=== PATIENT | female | born 1965 | race Caucasian/White ===

== ENCOUNTER 2017-12-22 08:08 | Emergency (ER) | payer BC ==
[2017-12-22 08:16] VITALS: BP 141/92
--- NOTE | 2017-12-22 08:23 | EDM.PDOC ---
ED HPI GENERAL MEDICAL PROBLEM - General Chief Complaint: Headache Stated Complaint: MIGRAINE Time Seen by Provider: 12/22/17 08:22 Source of Information: Reports: Patient History Limitations: Reports: No Limitations - History of Present Illness INITIAL COMMENTS - FREE TEXT/NARRATIVE: 52-year-old female attends the ED due to generalized severe headache. Associated nausea. History is complicated by the fact that she had surgery on her lumbar spine November 01.This was a microdiscectomy done by Dr Alston in [facility], [place]. She appears to develop recurrent seromas and dural leak but the source of this leak is not been able to be identified. She had a lumbar puncture gain done on Saturday last week looking for dural leak and had a myelogram performed at that time. Apparently no source of leak identified. She' s had 3 surgeries since November 01 in an effort to close suspect dural leak. He presents the ED with a severe pounding headache. She went to work for 2 part days last week for the first time in 6 weeks as she's been disabled by severe headaches. Headache is worse with bending her head or traction component to her headaches. Worse if she sneezes or coughs. Different than what she experienced post lumbar spine headache. No visual changes. She is sensitive to the sun. Onset: Other (Has had a headache for over 6 weeks) Onset Date: 11/02/17 Duration: Getting Worse, Waxing/Waning Location: Reports: Head (Headache) Quality: Reports: Ache, Throbbing, Other (Pounding pressure) Severity: Severe (8 out of 10) Improves with: Reports: Rest Worsens with: Reports: Other (Worse with standing coughing sneezing.) Context: Reports: Other (Headache occurred after lumbar spine surgery with suspect dural leak and formation of a seroma.). Denies: Activity, Exercise, Lifting, Sick Contact, Trauma Associated Symptoms: Reports: Headaches, Loss of Appetite, Malaise, Nausea/ Vomiting. 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, Other (see below) (Percocet and Flexeril when necessary) Headache Pain Score (Numeric/FACES): 10 - Related Data Allergies Allergy/AdvReac Type Severity Reaction Status Date / Time No Known Allergies Allergy Verified 12/22/17 08:16 Home Meds: Home Meds Calcium Carbonate/Vitamin D3 [Calcium 600 + Vit D 200] 2 tab PO DAILY 01/31/16 [ History] Ipratropium [place] 2 spray NASBOTH BID 01/31/16 [History] Multivitamin [Multivitamins] 1 cap PO DAILY 01/31/16 [History] SUMAtriptan Succinate [Imitrex] 100 mg PO ASDIRECTED PRN 01/31/16 [History] Zolpidem Tartrate [Ambien Cr] 6.25 mg PO BEDTIME PRN 01/31/16 [History] busPIRone HCl [Buspirone HCl] 15 mg PO BID 01/31/16 [History] Acetaminophen/oxyCODONE [Percocet 325-5 MG] 1 - 2 tab PO Q6H PRN #40 tablet [Rx] Cyclobenzaprine [Flexeril] 10 mg PO TID PRN #40 tablet 02/02/16 [Rx] Estradiol [Climara] 0.05 mg TOP TUSA 12/22/17 [History] Progesterone,Micronized [Progesterone] 100 mg PO BEDTIME 12/22/17 [History] Sertraline [Zoloft] 50 mg PO BEDTIME 12/22/17 [History] Past Medical History HEENT History: Reports: Allergic Rhinitis, Sinusitis Other HEENT History: migraines Cardiovascular History: Reports: Other (See Below) Other Cardiovascular History: RBBB Gastrointestinal History: Reports: GERD Other OB/BYN History: hysterectomy Musculoskeletal History: Reports: Other (See Below) Other Musculoskeletal History: DDD Psychiatric History: Reports: Anxiety, Depression, Other (See Below) Other Psychiatric History: insomnia Dermatologic History: Reports: Other (See Below) Other Dermatologic History: keratosis - Past Surgical History GI Surgical History: Reports: Appendectomy, Cholecystectomy Female Surgical History: Reports: Hysterectomy Social & Family History - Tobacco Use Smoking Status *Q: Never Smoker - Recreational Drug Use Recreational Drug Use: No - Living Situation & Occupation Living situation: Reports: Occupation: Employed ED ROS GENERAL - Review of Systems Review Of Systems: See Below Constitutional: Reports: Weakness, Fatigue, Decreased Appetite, Weight Loss. Denies: Fever, Chills, Malaise HEENT: Denies: Vertigo Respiratory: Reports: No Symptoms Cardiovascular: Reports: No Symptoms Endocrine: Reports: No Symptoms GI/Abdominal: Reports: Nausea (Intermittent nausea associated with the severity of the headache) Musculoskeletal: Reports: Other (Next stiffness today.) Skin: Reports: No Symptoms Neurological: Reports: Dizziness, Headache, Difficulty Walking, Weakness. Denies: Numbness, Paresthesia, Pre-Existing Deficit, Seizure, Syncope, Tingling , Tremors, Trouble Speaking, Change in Speech Psychiatric: Reports: No Symptoms (Due to the severity of headache) Hematologic/Lymphatic: Reports: No Symptoms Immunologic: Reports: No Symptoms - Physical Exam Exam: See Below Exam Limited By: No Limitations General Appearance: Alert, WD/WN, Mild Distress Eye Exam: Bilateral Eye: Normal Fundi, Papilledema (No papilledema bilaterally.) , PERRL Throat/Mouth: Normal Inspection, Normal Lips, Normal Oropharynx Head Exam: Atraumatic, Normocephalic Neck: Normal Inspection, Supple, Non-Tender, Full Range of Motion. No: Lymphadenopathy (L), Lymphadenopathy (R) Respiratory/Chest: No Respiratory Distress, Lungs Clear, Normal Breath Sounds Cardiovascular: Normal Peripheral Pulses, Regular Rate, Rhythm, No Edema Back Exam: Other (She has a well-healed midline lumbar spine scar with no formation of seroma at this time.). No: CVA Tenderness (L), CVA Tenderness (R) , Decreased Range of Motion Extremities: Normal Inspection, Normal Range of Motion, Non-Tender, No Pedal Edema Psychiatric: Normal Affect Skin Exam: Warm, Dry, Intact, Normal Color, No Rash Course - Vital Signs Last Recorded V/S: Last Vital Signs Temp 37.1 C 12/22/17 08:14 Pulse 67 12/22/17 08:14 Resp 16 12/22/17 08:14 BP 141/92 H 12/22/17 08:14 Pulse Ox 98 12/22/17 08:14 - Orders/Labs/Meds Orders: Active Orders 24 hr Category Date Time Status Dextrose 5%-Lactated Ringers 1,000 ml Med 12/22/17 08:30 Active IV ASDIRECTED Ketorolac [Toradol] Med 12/22/17 08:45 Active 30 mg IVPUSH ONETIME Medication Orders Dextrose/Lactated Ringer's (Dextrose 5%-Lactated Ringers) 1,000 mls @ 999 mls/ hr IV ASDIRECTED FELICIANO Last Admin: 12/22/17 08:37 Dose: 999 mls/hr Ketorolac Tromethamine (Toradol) 30 mg IVPUSH ONETIME FELICIANO Last Admin: 12/22/17 08:37 Dose: 30 mg Meds: Medications Generic Name Dose Route Start Last Admin Trade Name Freq PRN Reason Stop Dose Admin Dextrose/Lactated Ringer's 1,000 mls @ 999 mls/hr 12/22/17 08:30 12/22/17 08: 37 Dextrose 5%-Lactated Ringers IV 999 mls/hr ASDIRECTED FELICIANO Administration Ketorolac Tromethamine 30 mg 12/22/17 08:45 12/22/17 08:37 Toradol IVPUSH 30 mg ONETIME FELICIANO Administration Discontinued Medications Generic Name Dose Route Start Last Admin Trade Name Freq PRN Reason Stop Dose Admin Hydromorphone HCl 0.5 mg 12/22/17 08:31 12/22/17 08:37 Dilaudid IVPUSH 12/22/17 08:32 0.5 mg ONETIME ONE Administration Hydromorphone HCl 0.5 mg 12/22/17 09:59 12/22/17 10:05 Dilaudid IVPUSH 12/22/17 10:00 0.5 mg ONETIME ONE Administration Metoclopramide HCl 7.5 mg 12/22/17 08:31 12/22/17 08:37 Reglan IVPUSH 12/22/17 08:32 7.5 mg ONETIME ONE Administration - Radiology Interpretation Free Text/Narrative:: 51-year-old female presents to the ED with a severe headache. She has a headache on a daily basis since surgery was performed on her lumbar spine on November 01. She developed complications with a dural leak and we formation of chronic seroma. Last week Saturday she had a mild gram performed to see if they can identify where the level of dural leak was a quintanilla. No leak was identified by myelogram. She is left with a chronic cyst pounding throbbing headache with associated nausea and some days worse than others. She spends most time lying down and standing aggravates the headache and sneezing coughing makes the headache much worse. Neuro exam is normal. There is no papilledema. Plan CT head to be done. Will give IV D5 Ringer's lactate at open. Toradol 30 mg IV with Dilaudid 0.5 mg IV and Reglan 7.5 mg IV for headache and nausea relief - Re-Assessments/Exams Free Text/Narrative Re-Assessment/Exam: 12/22/17 09:10 CT scan of the brain reveals no intracranial hypertension. Is within normal limits. There is a calcification in the inferior portion of the right basal ganglia that was present on CT done 2009. There is no midline shift or mass effect. 12/22/17 09:38 patient reports she still has significant head pressure but it is slowly improving. Will reassess in 20 minutes or so. 12/22/17 09:59 patient reports pain is 6 out of 10. Improved compared to when she came but always to go to be back to normal. Will repeat Dilaudid 0.5 mg IV. She feels after this she'll build to go home and sleep for a period of time and hopefully break the headache cycle. Departure - Departure Time of Disposition: 10:10 Disposition: Home, Self-Care 01 Condition: Fair Clinical Impression: Chronic low back pain Qualifiers: Back pain laterality: bilateral Sciatica presence: without sciatica Qualified Code(s): M54.5 - Low back pain Migraine Qualifiers: Migraine type: other Status migrainosus presence: without status migrainosus Intractability: not intractable Qualified Code(s): G43.809 - Other migraine, not intractable, without status migrainosus - Discharge Information Instructions: Migraine Headache Referrals: Jess Enciso PA-C [Primary Care Provider] - Forms: ED Department Discharge Additional Instructions: Evaluation in the emergency room today in regards to severe headache post lumbar myelogram performed 3 days ago. Dural leak unfortunately was not identified on myelogram performed last week. Socially you developed a severe headache post myelogram. Sometimes the dye can cause irritation of the membranes around the brain and spinal cord. This could make her neck stiff and sore and aggravate the headache. He relates this time 12. It's very important to maintain plenty of fluids such as Gatorade Powerade and other fluids. Treatment in the ED was CT of the brain which revealed no abnormalities. You are given a liter of IV fluids to rehydrate you. You're given Dilaudid 0.5 mg IV 2 doses for relief of headache pain and Reglan 7.5 mg IV for relief of nausea. Suggest home to rest/sleep 4. A 4-6 hours to see if we can break the headache cycle. Continue pain medication as required. Also okay to take Motrin 600 mg every 6 hours to relieve inflammation and pain. - My Orders Last 24 Hours: My Active Orders 12/22/17 08:30 Dextrose 5%-Lactated Ringers 1,000 ml IV ASDIRECTED 12/22/17 08:45 Ketorolac [Toradol] 30 mg IVPUSH ONETIME - Assessment/Plan Last 24 Hours: My Active Orders 12/22/17 08:30 Dextrose 5%-Lactated Ringers 1,000 ml IV ASDIRECTED 12/22/17 08:45 Ketorolac [Toradol] 30 mg IVPUSH ONETIME
[2017-12-22] MEDS ORDERED: Dextrose 5%-Lactated Ringers 1,000 ML IV SCH (08:30)
[2017-12-22] MEDS ORDERED: Metoclopramide 10 MG/2 ML SDV IVPUSH ONE (08:31)
[2017-12-22] MEDS ORDERED: HYDROmorphone 0.5 MG/0.5 ML SYRINGE IVPUSH ONE ×2 (08:31→09:59)
[2017-12-22] MEDS ORDERED: Ketorolac 30 MG/ML SDV IVPUSH SCH (08:45)
--- NOTE | 2017-12-22 09:21 | CT ---
Head CT Technique: Multiple axial sections through the brain were obtained. Intravenous contrast was not utilized. Comparison: Previous head CT exam of 08/08/09. Findings: Ventricles along the basal cisterns and sulci over the convexities are within normal limits. No abnormal parenchymal densities are seen. No evidence of intracranial hemorrhage or mass effect. Slight basal ganglia calcification is seen. Bone window settings were reviewed which shows no acute calvarial abnormality. Visualized sinuses are clear. Impression: 1. No acute intracranial abnormality is identified on noncontrast head CT study. Diagnostic code #1
== END 2017-12-22 10:17 | disposition home or self-care (01) ==
LOC: JD.ED 08:08
DX: G43.909 Migraine, unspecified, not intractable, without status migrainosus (principal); M54.5 Low back pain; G89.29 Other chronic pain; K21.9 Gastro-esophageal reflux disease without esophagitis; Z79.899 Other long term (current) drug therapy; F32.9 Major depressive disorder, single episode, unspecified
CPT/HCPCS: 70450; 96361; 96374; 96375; 96376; 99284; J1170; J1885; J2765; J7042

== ENCOUNTER 2018-04-01 07:16 | Day surgery (SDC) | payer BC ==
[~2018-04-01 07:16] MED LIST: Lactated Ringers 1,000 ML IV SCH; Lidocaine 1%/Sod Bicarbonate in NS 8.4% 1 ML Syringe IDERM PRN; Sodium Chloride 0.9% 10 ML Syringe FLUSH PRN
[2018-04-01] MEDS: Lactated Ringers 1,000 ML IV SCH ×2 (07:30→11:31)
[2018-04-01] MEDS ORDERED: Lidocaine 1% with EPINEPHrine 1:100,000 20 ML MDV ONE (07:48)
[2018-04-01] MEDS ORDERED: Sodium Chloride 0.9% 50 ML SDV ONE (07:49)
[2018-04-01] MEDS ORDERED: Scopolamine 1.5 MG Transdermal Patch TOP ONE (08:02)
--- NOTE | 2018-04-01 08:02 | PCM.PREANE ---
Preanesthetic Assessment - Procedure Proposed Procedure: posterior vaginal repair with perineaplasty - Anesthesia/Transfusion/Family Hx Type of Anesthesia Reaction: Excessive Nausea/Vomiting Family History of Anesthesia Reaction: No Transfusion History: No Prior Transfusion(s) - Review of Systems General: No Symptoms Pulmonary: No Symptoms Cardiovascular: No Symptoms Gastrointestinal: No Symptoms Neurological: No Symptoms Other: Reports: Easy Bruising, Sinus Problem, Depression, Anxiety - Physical Assessment NPO Status Date: 03/31/18 NPO Status Time: 19:00 Pulse: 60 O2 Sat by Pulse Oximetry: 100 Respiratory Rate: 16 Vital Signs: Last Vital Signs Temp 98.3 F 04/01/18 07:15 Pulse 60 04/01/18 07:15 Resp 16 04/01/18 07:15 BP 124/87 04/01/18 07:15 Pulse Ox 100 04/01/18 07:15 Height: 5 ft 5 in Weight: 55.837 kg ASA Class: 2 Mental Status: Alert & Oriented x3 Airway Class: Mallampati = 1 Dentition: Reports: Normal Dentition Thyro-Mental Finger Breadths: 3 Mouth Opening Finger Breadths: 3 ROM/Head Extension: Full Lungs: Clear to Auscultation, Normal Respiratory Effort Cardiovascular: Regular Rate, Regular Rhythm - Lab Values: Laboratory Last Values WBC 6.67 K/mm3 (3.98-10.04) 03/31/18 11:43 RBC 4.92 M/mm3 (3.98-5.22) 03/31/18 11:43 Hgb 14.6 gm/L (11.2-15.7) 03/31/18 11:43 Hct 44.9 % (34.1-44.9) 03/31/18 11:43 MCV 91.3 fl (79.4-94.8) 03/31/18 11:43 MCH 29.7 pg (25.6-32.2) 03/31/18 11:43 MCHC 32.5 g/dl (32.2-35.5) 03/31/18 11:43 RDW Std Deviation 46.9 fL (36.4-46.3) H 03/31/18 11:43 Plt Count 212 K/mm3 (182-369) 03/31/18 11:43 MPV 11.3 fl (9.4-12.3) 03/31/18 11:43 Neut % (Auto) 58.0 % (34.0-71.1) 03/31/18 11:43 Lymph % (Auto) 30.9 % (19.3-51.7) 03/31/18 11:43 [place] % (Auto) 8.1 % (4.7-12.5) 03/31/18 11:43 Eos % (Auto) 2.4 (0.7-5.8) 03/31/18 11:43 Baso % (Auto) 0.3 % (0.1-1.2) 03/31/18 11:43 Neut # (Auto) 3.87 K/mm3 (1.56-6.13) 03/31/18 11:43 Lymph # (Auto) 2.06 K/mm3 (1.18-3.74) 03/31/18 11:43 [place] # (Auto) 0.54 K/mm3 (0.24-0.36) H 03/31/18 11:43 Eos # (Auto) 0.16 K/mm3 (0.04-0.36) 03/31/18 11:43 Baso # (Auto) 0.02 K/mm3 (0.01-0.08) 03/31/18 11:43 Sodium 141 mEq/L (136-145) 03/31/18 11:43 Potassium 4.0 mEq/L (3.5-5.1) 03/31/18 11:43 Chloride 105 mEq/L (98-107) 03/31/18 11:43 Carbon Dioxide 27 mEq/L (21-32) 03/31/18 11:43 Anion Gap 13.0 (5-15) 03/31/18 11:43 BUN 16 mg/dL (7-18) 03/31/18 11:43 Creatinine 0.9 mg/dL (0.55-1.02) 03/31/18 11:43 Est Cr Clr Drug Dosing TNP 03/31/18 11:43 Estimated GFR (MDRD) > 60 mL/min (>60) 03/31/18 11:43 BUN/Creatinine Ratio 17.8 (14-18) 03/31/18 11:43 Glucose 97 mg/dL (74-106) 03/31/18 11:43 Calcium 9.3 mg/dL (8.5-10.1) 03/31/18 11:43 Total Bilirubin 0.4 mg/dL (0.2-1.0) 03/31/18 11:43 AST 28 U/L (15-37) 03/31/18 11:43 ALT 29 U/L (14-59) 03/31/18 11:43 Alkaline Phosphatase 68 U/L (46-116) 03/31/18 11:43 Total Protein 6.8 g/dl (6.4-8.2) 03/31/18 11:43 Albumin 3.6 g/dl (3.4-5.0) 03/31/18 11:43 Globulin 3.2 gm/dL 03/31/18 11:43 Albumin/Globulin Ratio 1.1 (1-2) 03/31/18 11:43 Urine Color Yellow (Yellow) 03/31/18 11:43 Urine Appearance Clear (Clear) 03/31/18 11:43 Urine pH 7.5 (5.0-8.0) 03/31/18 11:43 Ur Specific [place] 1.020 (1.005-1.030) 03/31/18 11:43 Urine Protein Negative (Negative) 03/31/18 11:43 Urine Glucose (UA) Negative (Negative) 03/31/18 11:43 Urine Ketones Negative (Negative) 03/31/18 11:43 Urine Occult Blood Negative (Negative) 03/31/18 11:43 Urine Nitrite Negative (Negative) 03/31/18 11:43 Urine Bilirubin Negative (Negative) 03/31/18 11:43 Urine Urobilinogen 0.2 (0.2-1.0) 03/31/18 11:43 Ur Leukocyte Esterase Negative (Negative) 03/31/18 11:43 Urine RBC Not seen /hpf (0-5) 03/31/18 11:43 Urine WBC 0-5 /hpf (0-5) 03/31/18 11:43 Ur Epithelial Cells 0-5 /hpf (0-5) 03/31/18 11:43 Urine Bacteria Rare /hpf (FEW) 03/31/18 11:43 Urine Mucus Not seen /hpf (FEW) 03/31/18 11:43 Urine HCG, Qual Negative (NEGATIVE) 03/31/18 11:43 - Allergies Allergies/Adverse Reactions: Allergies Allergy/AdvReac Type Severity Reaction Status Date / Time No Known Allergies Allergy Verified 03/31/18 13:12 - Blood Blood Available: No - Anesthesia Plan Beta David: Propranolol Med Last Dose Date: 03/31/18 Med Last Dose Time: 20:30 - Acknowledgements Anesthesia Type Planned: General Anesthesia Pt an Appropriate Candidate for the Planned Anesthesia: Yes Alternatives and Risks of Anesthesia Discussed w Pt/Guardian: Yes Pt/Guardian Understands and Agrees with Anesthesia Plan: Yes PreAnesthesia Questionnaire HEENT History: Reports: Allergic Rhinitis, Impaired Vision, Sinusitis Other HEENT History: migraines Cardiovascular History: Reports: Other (See Below) Other Cardiovascular History: Right bundle branch block, bradycardia Gastrointestinal History: Reports: Other (See Below) Other Gastrointestinal History: Diarrhea, thrombosed external hemorrhoid Genitourinary History: Reports: Other (See Below) Other Genitourinary History: Urgency, dysuria 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: Other (See Below) Other OB/BYN History: Rectocele, night sweats, vaginitis, viral warts, peroneal tear, vaginal petar Musculoskeletal History: Other Musculoskeletal History: Trapezius strain Neurological History: Reports: Other (See Below) Other Neuro History: Degenerative disk disease (lumbar) Psychiatric History: Reports: Anxiety, Depression, Other (See Below) Other Psychiatric History: Insomnia Endocrine/Metabolic History: Reports: None Hematologic History: Reports: None Immunologic History: Reports: None Oncologic (Cancer) History: Reports: None Dermatologic History: Reports: Other (See Below) Other Dermatologic History: actinic keratosis, cellulitis - Infectious Disease History Infectious Disease History: Reports: Other (See Below) Other Infectious Disease History: Herpes labialis - Past Surgical History HEENT Surgical History: Reports: Tonsillectomy Cardiovascular Surgical History: Reports: None Respiratory Surgical History: Reports: None GI Surgical History: Reports: Appendectomy, Cholecystectomy Female Surgical History: Reports: Hysterectomy, Other (See Below) Other Female Surgeries/Procedures: Breast lumpectomy Endocrine Surgical History: Reports: None Neurological Surgical History: Reports: Lumbar Spine, Other (See Below) Other Neurological Surgeries/Procedures: CSF leak repair Musculoskeletal Surgical History: Reports: None (foot surgery- peroneal tendon repair), Other (See Below) Dermatological Surgical History: Reports: None - SUBSTANCE USE Smoking Status *Q: Former Smoker Tobacco Use Within Last Twelve Months: No Second Hand Smoke Exposure: No Days Per Week of Alcohol Use: 2 Number of Drinks Per Day: 1 Total Drinks Per Week: 2 Recreational Drug Use History: No - HOME MEDS Home Medications: Home Meds Calcium Carbonate/Vitamin D3 [Calcium 600 + Vit D 200] 2 tab PO DAILY 01/31/16 [ History] Ipratropium [place] 2 spray NASBOTH BID 01/31/16 [History] Multivitamin [Multivitamins] 1 cap PO DAILY 01/31/16 [History] Zolpidem Tartrate [Ambien Cr] 6.25 mg PO BEDTIME PRN 01/31/16 [History] busPIRone HCl [Buspirone HCl] 15 mg PO BID 01/31/16 [History] Estradiol [Climara] 0.025 mg TOP TUSA 12/22/17 [History] Progesterone,Micronized [Progesterone] 100 mg PO BEDTIME 12/22/17 [History] Sertraline [Zoloft] 50 mg PO BEDTIME 12/22/17 [History] ALPRAZolam [Alprazolam] 0.5 mg PO BEDTIME PRN 03/31/18 [History] Fish Oil/[place]-3 Fatty Acids [Fish Oil 1,000 MG] 1 gm PO BID 03/31/18 [History] Lifitegrast [Xiidra] 1 drop OP BID 03/31/18 [History] Magnesium Oxide [Magnesium] 800 mg PO BID 03/31/18 [History] Propranolol [Inderal] 40 mg PO BEDTIME 03/31/18 [History] - CURRENT (IN HOUSE) MEDS Current Meds: Current Medications Discontinued Medications Lactated Ringer's (Ringers, Lactated) 1,000 mls @ 125 mls/hr IV ASDIRECTED FELICIANO Stop: 03/31/18 23:00 Lidocaine/Epinephrine (Xylocaine 1% With Epinephrine 1:100,000) Confirm Administered Dose 20 ml .ROUTE .STK-MED ONE Stop: 04/01/18 07:49 Lidocaine/Sodium Bicarbonate (Buffered Lidocaine 1% In Ns 8.4%) 0.25 ml IDERM ONETIME PRN PRN Reason: Prior to IV Start Stop: 03/31/18 18:00 Sodium Chloride (Saline Flush) 10 ml FLUSH ASDIRECTED PRN PRN Reason: Keep Vein Open Stop: 03/31/18 18:00 Sodium Chloride (Normal Saline) Confirm Administered Dose 50 ml .ROUTE .[employer] ONE Stop: 04/01/18 07:50
[2018-04-01] MEDS ORDERED: Lidocaine 1%/Sod Bicarbonate in NS 8.4% 1 ML Syringe IDERM ONE (08:11)
[2018-04-01] MEDS ORDERED: Ondansetron 4 MG/2 ML SDV ONE (08:25)
[2018-04-01] MEDS ORDERED: Lidocaine 1% 4 ML ONE (08:25)
[2018-04-01] MEDS ORDERED: Propofol 200 MG/20 ML SDV ONE ×2 (08:26→09:22)
[2018-04-01] MEDS ORDERED: Midazolam 1 MG/ML 2 ML SDV ONE (08:26)
[2018-04-01] MEDS ORDERED: fentaNYL 250 MCG/5 ML SDV ONE (08:27)
[2018-04-01] MEDS ORDERED: ceFAZolin 1 GM Vial ONE (08:28)
[2018-04-01] MEDS ORDERED: HYDROmorphone 0.5 MG/0.5 ML Syringe IVPUSH PRN (08:46)
[2018-04-01] MEDS ORDERED: Ondansetron 4 MG/2 ML SDV IVPUSH PRN ×2 (08:46→09:36)
[2018-04-01] MEDS ORDERED: fentaNYL 100 MCG/2 ML SDV IVPUSH PRN (08:46)
[2018-04-01] MEDS ORDERED: Meperidine 50 MG/ML Vial IVPUSH PRN (08:46)
[2018-04-01] MEDS ORDERED: Dexamethasone 4 MG/ML 5 ML MDV ONE (08:50)
[2018-04-01] MEDS ORDERED: ePHEDrine/Normal Saline 25 MG/5 ML Syringe ONE (08:54)
[2018-04-01] MEDS ORDERED: Atropine 0.4 MG/ML SDV ONE (08:54)
[2018-04-01] MEDS ORDERED: Lactated Ringers 1,000 ML ONE (09:02)
[2018-04-01] MEDS ORDERED: Ketorolac 30 MG/ML SDV ONE (09:15)
[2018-04-01] MEDS ORDERED: Acetaminophen/oxyCODONE 325-5 MG Tab PO PRN (09:36)
--- NOTE | 2018-04-01 09:42 | PCM.OPNOTE ---
- General Post-Op/Procedure Note Date of Surgery/Procedure: 04/01/18 Operative Procedure(s): Posterior vaginal repair, perineoplasty Findings: Grade 3 rectocele. Patient status post hysterectomy and has had an anterior vaginal repair done previously. Vaginal epithelium is reasonably estrogenized. Pre Op Diagnosis: Grade 3 rectocele Post-Op Diagnosis: Same Anesthesia Technique: General ET Tube Other Anesthesia Type: Lidocaine quarter percent with [id number] mL total Primary Surgeon: Last Castro Secondary Surgeon: Beverley Iglesias Anesthesia Provider: Steven Arias Reason City Engineer Was Necessary: Retraction, assistance, patient safety and quality of care Role of City Engineer: Same as reason press assistant was needed Fluid Replacement, Intraop: 1,100 EBL in mLs: 40 Complications: None Condition: Good Free Text/Narrative:: Surgery duration: 36 minutes Procedure: The patient is taken to the operating room and placed in a supine position on the operating table. She received 2 g of Ancef preoperatively for infection prophylaxis. She had sequential compression stockings in place for DVT prophylaxis. Patient was administered general endotracheal anesthesia. She was placed in a dorsal lithotomy position and prepped and draped in the usual fashion. The uppermost portion of the rectocele was identified and was grasped midline with an Allis clamp. The introital area was grasped at approximately the 4:00 and 8:00 positions at the junction of the vaginal and vulvar epithelium. The area of epithelium was then infiltrated with lidocaine quarter percent with epinephrine. A abdias-shaped piece of epithelium was removed from the posterior introital and perineal area. The vaginal epithelium was then undermined superiorly to the top of the rectocele. Was then incised midline. With sharp and blunt dissection the epithelium was then dissected off of the underlying vesicovaginal fascia. At this point approximately 7 sutures of 0 Monocryl were placed to reapproximate the lateral supportive tissue midline and reduce the rectocele. The excess epithelium was then excised and the epithelium overlying the rectocele repair was then reapproximated with several short running sutures of 3-0 Monocryl. Attempt was made to maintain to [facility] fulfilling depth to the vagina. Perineoplasty was then performed with approximately 3 V-shaped stitches of 0 Monocryl in placed to reapproximate the lateral tissue midline, rebuild the perineum about 1 cm and the vagina approximately 1 cm in length. The epithelium of the introitus and perineal body was then reapproximated using 3-0 Monocryl in an episiotomy repair fashion. At this time sponge, instrument and needle counts were correct. The patient was returned to supine position and was discharged from the operating room in good
[2018-04-01] MEDS ORDERED: Ketorolac 30 MG/ML SDV IVPUSH SCH (09:45)
--- NOTE | 2018-04-01 09:45 | PCM.POSTAN ---
POST ANESTHESIA ASSESSMENT - MENTAL STATUS Mental Status: Alert, Oriented - VITAL SIGNS Pulse Rate: 85 SaO2: 100 Resp Rate: 8 Blood Pressure: 111/79 Temperature: 98.2 F - RESPIRATORY Respiratory Status: Respiratory Rate WNL, Airway Patent, O2 Saturation Stable, Supplemental Oxygen - CARDIOVASCULAR CV Status: Pulse Rate WNL, Blood Pressure Stable - GASTROINTESTINAL GI Status: No Symptoms - PAIN Pain Score: 2 (uncomfortable) - POST OP HYDRATION Hydration Status: Adequate & Stable - OBSERVATIONS Free Text/Narrative:: awake and talking- states uncomfortable- surinder dixon on
[2018-04-01 16:48] VITALS: BP 94/70
== END 2018-04-01 16:30 | disposition home or self-care (01) ==
LOC: JD.SDS 07:16
PROVIDERS: ATTEND Obstetrics & Gynecology
DX: N81.6 Rectocele (principal); M51.36 Other intervertebral disc degeneration, lumbar region; K21.9 Gastro-esophageal reflux disease without esophagitis; J30.9 Allergic rhinitis, unspecified; J45.20 Mild intermittent asthma, uncomplicated; F41.9 Anxiety disorder, unspecified; Z79.899 Other long term (current) drug therapy; Z87.891 Personal history of nicotine dependence
CPT/HCPCS: 36415; 57250; 80053; 81001; 81025; 85025; A9270; J0461; J0690; J1100; J1170; J1885; J2250; J2405; J2704; J3010; J7050; J7120; J2001

== ENCOUNTER 2018-04-05 16:30 | Emergency (ER) | payer BC ==
[2018-04-05 16:43] VITALS: BP 135/85
--- NOTE | 2018-04-05 17:36 | EDM.PDOC ---
ED HPI GENERAL MEDICAL PROBLEM - General Chief Complaint: Neck Problem Stated Complaint: NECK PAIN Time Seen by Provider: 04/05/18 16:57 Source of Information: Reports: Patient, RN Notes Reviewed - History of Present Illness INITIAL COMMENTS - FREE TEXT/NARRATIVE: 52 year old female had rectocele surgery 4 days ago which went well, started having neck pain 2 days ago that continues today. Pain is upper neck, base of skull with posterior Rodriguez as well. The pain is worse with motion of her head side to side. No fever, chills, nausea, vomiting. No back pain. No chest or abd pain. Neck Pain Score (Numeric/FACES): 10 - Related Data Allergies Allergy/AdvReac Type Severity Reaction Status Date / Time No Known Allergies Allergy Verified 04/05/18 16:40 Home Meds: Home Meds Calcium Carbonate/Vitamin D3 [Calcium 600 + Vit D 200] 2 tab PO DAILY 01/31/16 [ History] Ipratropium [place] 2 spray NASBOTH BID 01/31/16 [History] Multivitamin [Multivitamins] 1 cap PO DAILY 01/31/16 [History] Zolpidem Tartrate [Ambien Cr] 6.25 mg PO BEDTIME PRN 01/31/16 [History] busPIRone HCl [Buspirone HCl] 15 mg PO BID 01/31/16 [History] Estradiol [Climara] 0.025 mg TOP TUSA 12/22/17 [History] Progesterone,Micronized [Progesterone] 100 mg PO BEDTIME 12/22/17 [History] Sertraline [Zoloft] 50 mg PO BEDTIME 12/22/17 [History] ALPRAZolam [Alprazolam] 0.5 mg PO BEDTIME PRN 03/31/18 [History] Fish Oil/[place]-3 Fatty Acids [Fish Oil 1,000 MG] 1 gm PO BID 03/31/18 [History] Lifitegrast [Xiidra] 1 drop OP BID 03/31/18 [History] Magnesium Oxide [Magnesium] 800 mg PO BID 03/31/18 [History] Propranolol [Inderal] 40 mg PO BEDTIME 03/31/18 [History] Ibuprofen 600 mg PO Q4H PRN #30 tablet 04/01/18 [Rx] Naproxen [Naprosyn] 500 mg PO Q12HR #14 tab 04/05/18 [Rx] Past Medical History HEENT History: Reports: Allergic Rhinitis, Impaired Vision, Sinusitis Other HEENT History: migraines Cardiovascular History: Reports: Other (See Below) Other Cardiovascular History: Right bundle branch block, bradycardia Respiratory History: Reports: Asthma Gastrointestinal History: Reports: Other (See Below) Other Gastrointestinal History: Diarrhea, thrombosed external hemorrhoid Genitourinary History: Reports: Other (See Below) Other Genitourinary History: Urgency, dysuria DETECTIVE AUTOMOBILE SECTION History: Reports: Other (See Below) Other DETECTIVE AUTOMOBILE SECTION History: Rectocele, night sweats, vaginitis, viral warts, peroneal tear, vaginal petar Musculoskeletal History: Other Musculoskeletal History: Trapezius strain Neurological History: Reports: Other (See Below) Other Neuro History: Degenerative disk disease (lumbar) Psychiatric History: Reports: Anxiety, Depression, Other (See Below) Other Psychiatric History: Insomnia Endocrine/Metabolic History: Reports: None Hematologic History: Reports: None Immunologic History: Reports: None Oncologic (Cancer) History: Reports: None Dermatologic History: Reports: Other (See Below) Other Dermatologic History: actinic keratosis, cellulitis - Infectious Disease History Infectious Disease History: Reports: Other (See Below) Other Infectious Disease History: Herpes labialis - Past Surgical History HEENT Surgical History: Reports: Tonsillectomy Cardiovascular Surgical History: Reports: None Respiratory Surgical History: Reports: None GI Surgical History: Reports: Appendectomy, Cholecystectomy Female Surgical History: Reports: Hysterectomy, Other (See Below) Other Female Surgeries/Procedures: Breast lumpectomy, rectoceole Endocrine Surgical History: Reports: None Neurological Surgical History: Reports: Lumbar Spine, Other (See Below) Other Neurological Surgeries/Procedures: CSF leak repair Musculoskeletal Surgical History: Reports: None, Other (See Below) Other Musculoskeletal Surgeries/Procedures:: bunion surgery Dermatological Surgical History: Reports: None Social & Family History - Tobacco Use Smoking Status *Q: Never Smoker - Caffeine Use Caffeine Use: Reports: Coffee - Alcohol Use Days Per Week of Alcohol Use: 5 Number of Drinks Per Day: 2 Total Drinks Per Week: 10 - Recreational Drug Use Recreational Drug Use: No - Living Situation & Occupation Living situation: Reports: Occupation: Employed ED ROS GENERAL - Review of Systems Review Of Systems: See Below Constitutional: Denies: Fever, Chills HEENT: Denies: Ear Pain, Sinus Problem, Throat Pain, Vertigo, Vision Change Respiratory: Denies: Shortness of Breath, Cough Cardiovascular: Denies: Chest Pain GI/Abdominal: Denies: Abdominal Pain, Nausea, Vomiting Musculoskeletal: Reports: Neck Pain. Denies: Back Pain, Joint Pain Skin: Denies: Rash Neurological: Reports: Headache (posterior, not throbbing). Denies: Numbness, Tingling, Trouble Speaking, Difficulty Walking, Weakness ED EXAM, UPPER BACK/NECK PAIN - Physical Exam Exam: See Below General Appearance: Alert, Mild Distress Eye Exam: Bilateral Eye: PERRL Nose Exam: Normal Inspection Throat/Mouth Exam: Normal Inspection, Normal Oropharynx Head Exam: Atraumatic. No: Facial Swelling Neck Exam: Stiff Neck (she can rotate head and neck side to side but with discomfort), Tenderness (bilat posterior upper base of neck) Cardiovascular/Respiratory: Regular Rate, Rhythm Back Exam: Normal Inspection. No: Paraspinal Tenderness, Vertebral Tenderness Extremities: Normal Inspection, Normal Range of Motion Neurologic: No Motor/Sensory Deficits, Oriented x 3, Other (finger to nose testing normal) Skin Exam: Normal Color, Warm/Dry. No: Rash Course - Vital Signs Last Recorded V/S: Last Vital Signs Temp 97.4 F 04/05/18 16:40 Pulse 72 04/05/18 16:40 Resp 16 04/05/18 16:40 BP 135/85 04/05/18 16:40 Pulse Ox 100 04/05/18 16:40 - Re-Assessments/Exams Free Text/Narrative Re-Assessment/Exam: 04/05/18 19:04 she has marked tenderness upper neck musculature base of skull. I believe this is muscle strain, likely positional from surgery. I have discussed this with patient and her . Have prescribed naprosyn 500 bid. She can take tylenol and flexeril that she has from prior prescription as needed. It is expected this will get a lot better over the next 2 to 3 days. Discharge instr. as documented. Departure - Departure Time of Disposition: 17:30 Disposition: Home, Self-Care 01 Condition: Fair Clinical Impression: Neck muscle strain Qualifiers: Encounter type: initial encounter Qualified Code(s): S16.1XXA - Strain of muscle, fascia and tendon at neck level, initial encounter - Discharge Information Prescriptions: Naproxen [Naprosyn] 500 mg PO Q12HR #14 tab Instructions: Muscle Strain, [id number] Referrals: Jess Enciso PA-C [Primary Care Provider] - Forms: ED Department Discharge Additional Instructions: naprosyn 500 mg twice daily for pain and inflamation, tylenol in addition up to 3 times daily is safe for further pain relief, continue muscle relaxant until soreness resolving, alternate ice and heat as needed. This should significantly better over the next 2 to 3 days. Follow up clinic if not much better by Saturday. Return to ED if symptoms worsening in any way.
== END 2018-04-05 17:40 | disposition home or self-care (01) ==
LOC: JD.ED 16:30
DX: S16.1XXA Strain of muscle, fascia and tendon at neck level, initial encounter (principal); Z79.899 Other long term (current) drug therapy; X58.XXXA Exposure to other specified factors, initial encounter; Z98.890 Other specified postprocedural states
CPT/HCPCS: 99283

== ENCOUNTER 2020-06-30 07:37 | Day surgery (SDC) | payer BC ==
--- NOTE | 2020-06-30 07:50 | PCM.PREANE ---
Preanesthetic Assessment - Anesthesia/Transfusion/Family Hx Anesthesia History: Prior Anesthesia Without Reaction Transfusion History: No Prior Transfusion(s) - Review of Systems General: No Symptoms Pulmonary: No Symptoms Cardiovascular: No Symptoms Gastrointestinal: No Symptoms Neurological: No Symptoms Other: Reports: None - Physical Assessment NPO Status Date: 06/30/20 NPO Status Time: 04:00 (CLQ) ASA Class: 1 Mental Status: Alert & Oriented x3 Dentition: Reports: Normal Dentition Thyro-Mental Finger Breadths: 3 Mouth Opening Finger Breadths: 3 ROM/Head Extension: Full Lungs: Clear to Auscultation, Normal Respiratory Effort Cardiovascular: Regular Rate, Regular Rhythm - Allergies Allergies/Adverse Reactions: Allergies Allergy/AdvReac Type Severity Reaction Status Date / Time No Known Allergies Allergy Verified 06/29/20 14:25 - Acknowledgements Anesthesia Type Planned: MAC Pt an Appropriate Candidate for the Planned Anesthesia: Yes Alternatives and Risks of Anesthesia Discussed w Pt/Guardian: Yes Pt/Guardian Understands and Agrees with Anesthesia Plan: Yes PreAnesthesia Questionnaire HEENT History: Reports: Allergic Rhinitis, Impaired Vision, Sinusitis Cardiovascular History: Reports: Other (See Below) Other Cardiovascular History: Right bundle branch block, bradycardia Respiratory History: Reports: Sleep Apnea (being evaluated) Gastrointestinal History: Reports: GERD, Hemorrhoids, Other (See Below) Other Gastrointestinal History: thrombosed external hemorrhoid Genitourinary History: Reports: Urinary Incontinence, Other (See Below) Other Genitourinary History: Urgency, dysuria 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) Other OB/BYN History: Rectocele, night sweats, vaginitis, viral warts, peroneal tear, vaginal petar Musculoskeletal History: Other Musculoskeletal History: Trapezius strain Neurological History: Reports: Other (See Below) Other Neuro History: Degenerative disk disease (lumbar) Psychiatric History: Reports: Anxiety, Depression, Other (See Below) Other Psychiatric History: Insomnia Endocrine/Metabolic History: Reports: None Hematologic History: Reports: None Immunologic History: Reports: None Oncologic (Cancer) History: Reports: None Dermatologic History: Reports: Other (See Below) Other Dermatologic History: actinic keratosis, cellulitis - Infectious Disease History Infectious Disease History: Reports: Novel Coronavirus Other Infectious Disease History: Herpes labialis - Past Surgical History Head Surgeries/Procedures: Reports: None HEENT Surgical History: Reports: Naso-Sinus Surgery, Tonsillectomy Cardiovascular Surgical History: Reports: None Respiratory Surgical History: Reports: None GI Surgical History: Reports: Appendectomy, Cholecystectomy, EGD Female Surgical History: Reports: Hysterectomy, Other (See Below) Other Female Surgeries/Procedures: Breast lumpectomy, rectocele repair Endocrine Surgical History: Reports: None Neurological Surgical History: Reports: Lumbar Spine, Other (See Below) Other Neurological Surgeries/Procedures: CSF leak repair Musculoskeletal Surgical History: Reports: None, Other (See Below) Other Musculoskeletal Surgeries/Procedures:: bunion surgery Oncologic Surgical History: Reports: None Dermatological Surgical History: Reports: None - SUBSTANCE USE Tobacco Use Status *Q: Never Tobacco User Recreational Drug Use History: Yes Recreational Drug Type: Reports: Marijuana/Hashish - HOME MEDS Home Medications: Home Meds Calcium Carbonate/Vitamin D3 [Calcium 600 + Vit D 200] 2 tab PO DAILY 01/31/16 [History] Multivitamin [Multivitamins] 1 cap PO DAILY 01/31/16 [History] Zolpidem Tartrate [Ambien Cr] 6.25 mg PO BEDTIME PRN 01/31/16 [History] busPIRone HCl [Buspirone HCl] 15 mg PO BID 01/31/16 [History] estradioL [Climara] 0.025 mg TOP TUSA 12/22/17 [History] ALPRAZolam [Alprazolam] 0.5 mg PO BEDTIME PRN 03/31/18 [History] Fish Oil/[place]-3 Fatty Acids [Fish Oil 1,000 MG] 1 gm PO BID 03/31/18 [History] Lifitegrast [Xiidra] 1 drop OP BID 03/31/18 [History] Magnesium Oxide [Magnesium] 400 mg PO BID 03/31/18 [History] Butalb/Acetaminophen/Caffeine [Jegalo-Bheqiuhx-Lnsd 50-325-40] 2 cap PO Q4H PRN 06/29/20 [History] Ipratropium [place] 1 spray NASBOTH BID 06/29/20 [History] Progesterone, Micronized [Progesterone] 100 mg PO DAILY 06/29/20 [History] - CURRENT (IN HOUSE) MEDS Current Meds: Current Medications Lactated Ringer's (Ringers, Lactated) 1,000 mls @ 125 mls/hr IV ASDIRECTED FELICIANO Stop: 06/30/20 23:00 Lidocaine/Sodium Bicarbonate (Buffered Lidocaine 1% In Ns 8.4%) 0.25 ml IDERM ONETIME PRN PRN Reason: Prior to IV Start Stop: 06/30/20 18:00 Sodium Chloride (Saline Flush) 10 ml FLUSH ASDIRECTED PRN PRN Reason: Keep Vein Open Stop: 06/30/20 18:00
[2020-06-30] MEDS ORDERED: Propofol 200 MG/20 ML SDV ONE ×2 (08:45→09:29)
[2020-06-30] MEDS ORDERED: fentaNYL 100 MCG/2 ML SDV ONE (08:45)
--- NOTE | 2020-06-30 09:49 | PCM.PRNOTE ---
- Free Text/Narrative Note: Date: 06/29/2020 Procedure: screening colonoscopy Endoscopist: Rajesh Mcintosh MD Findings: excellent prep. Cecum reached, one small sessile polyp identified in the cecum. Detailed Report: The patient was taken to the endoscopy suite and placed in left lateral decubitus position. Timeout was performed, and monitored anesthesia care initiated. Visual inspection of the anus revealed small external hemorrhoidal skin tag. Digital rectal exam was unremarkable. The colonoscope was inserted and advanced all the way to the cecum. The appendiceal orifice was visualized. The scope was then slowly withdrawn, and mucosal surfaces carefully inspected. The prep was excellent. A subcentimeter sessile polyp was seen in the cecum. This was removed with forceps and the tissue base was fulgurated. No other lesions were identified. On retroflexion in the rectum, minor internal hemorrhoids were noted, as well as hypertrophied anal papillae. Air was suctioned prior to withdrawal of the scope. The patient tolerated the procedure well.
[2020-06-30 10:02] VITALS: BP 116/77; PULSE 56
--- NOTE | 2020-06-30 10:07 | PCM48HPAN ---
Post Anesthesia Note - EVALUATION WITHIN 48HRS OF ANESTHETIC Vital Signs in Normal Range: Yes Patient Participated in Evaluation: Yes Respiratory Function Stable: Yes Airway Patent: Yes Cardiovascular Function Stable: Yes Hydration Status Stable: Yes Pain Control Satisfactory: Yes Nausea and Vomiting Control Satisfactory: Yes Mental Status Recovered: Yes Vital Signs: Last Vital Signs Temp 97.0 F 06/30/20 09:47 Pulse 56 L 06/30/20 10:00 Resp 16 06/30/20 10:00 BP 116/77 06/30/20 10:00 Pulse Ox 99 06/30/20 10:00
== END 2020-06-30 10:23 | disposition home or self-care (01) ==
LOC: JD.SDS 07:37
PROVIDERS: ATTEND Surgery
DX: Z12.11 Encounter for screening for malignant neoplasm of colon (principal); K64.4 Residual hemorrhoidal skin tags; K64.8 Other hemorrhoids; K62.89 Other specified diseases of anus and rectum; D12.0 Benign neoplasm of cecum; Z79.899 Other long term (current) drug therapy; Z90.49 Acquired absence of other specified parts of digestive tract; Z98.890 Other specified postprocedural states; Z87.891 Personal history of nicotine dependence
CPT/HCPCS: 45380; J2704; J3010; J7120; 00812

== ENCOUNTER 2020-10-01 10:01 | Emergency (ER) | payer BC ==
[2020-10-01] MEDS ORDERED: Ketorolac 60 MG/2 ML SDV IM ONE (11:14)
[2020-10-01] MEDS ORDERED: Orphenadrine 100 MG Tab.ER PO ONE (11:14)
--- NOTE | 2020-10-01 11:18 | EDM.PDOC ---
ED HPI GENERAL MEDICAL PROBLEM - General Chief Complaint: Upper Extremity Injury/Pain Stated Complaint: R SHOULDER PAIN Time Seen by Provider: 10/01/20 11:07 Source of Information: Reports: Patient, RN Notes Reviewed History Limitations: Reports: No Limitations - History of Present Illness INITIAL COMMENTS - FREE TEXT/NARRATIVE: Patient is a 55-year-old female who presents to the ED for the evaluation of her right shoulder blade pain. Patient that she has been having neck discomfort for the past few weeks that she has been working with a chiropractor for. She states that she went to the chiropractor yesterday, but feels like this treatment may have tweaked something and made the pain worse, she is experiencing some sharp shooting pain into her right shoulder blade, that seems to worsen with movement. She states it feels like she just wants to stretch her arm or her back all the time to make it feel better. She has been using 800 mg of ibuprofen 3 times a day, she took 1 tablet of tramadol last night and again this morning, and has been trying to utilize alcohol to cope with the pain. She states that this morning she did have some nausea and puked once or twice due to the pain. Other than these symptoms she is not had any chest pain, shortness of breath, or any fevers or chills, or any other sick-like symptoms. Patient denies any trauma to the area. She states she does do some lifting regularly at work, is not sure if that could be the cause of the issue. Right Shoulder Pain Score (Numeric/FACES): 10 - Related Data Allergies Allergy/AdvReac Type Severity Reaction Status Date / Time No Known Allergies Allergy Verified 10/01/20 10:16 Home Meds: Home Meds Calcium Carbonate/Vitamin D3 [Calcium 600 + Vit D 200] 2 tab PO DAILY 01/31/16 [History] Multivitamin [Multivitamins] 1 cap PO DAILY 01/31/16 [History] Zolpidem Tartrate [Ambien Cr] 6.25 mg PO BEDTIME PRN 01/31/16 [History] busPIRone HCl [Buspirone HCl] 15 mg PO BID 01/31/16 [History] estradioL [Climara] 0.025 mg TOP TUSA 12/22/17 [History] ALPRAZolam [Alprazolam] 0.5 mg PO BEDTIME PRN 03/31/18 [History] Fish Oil/[place]-3 Fatty Acids [Fish Oil 1,000 MG] 1 gm PO BID 03/31/18 [History] Lifitegrast [Xiidra] 1 drop OP BID 03/31/18 [History] Magnesium Oxide [Magnesium] 400 mg PO BID 03/31/18 [History] Butalb/Acetaminophen/Caffeine [Tbrnyf-Ttfsnmmv-Drzq 50-325-40] 2 cap PO Q4H PRN 06/29/20 [History] Ipratropium [place] 1 spray NASBOTH BID 06/29/20 [History] Progesterone, Micronized [Progesterone] 100 mg PO DAILY 06/29/20 [History] Acetaminophen/oxyCODONE [Percocet 325-5 MG] 1 each PO Q6H PRN #12 tab 10/01/20 [Rx] Orphenadrine [Norflex] 100 mg PO BID PRN #20 tab 10/01/20 [Rx] Past Medical History HEENT History: Reports: Allergic Rhinitis, Impaired Vision, Sinusitis Cardiovascular History: Reports: Other (See Below) Other Cardiovascular History: Right bundle branch block, bradycardia Respiratory History: Reports: Sleep Apnea Gastrointestinal History: Reports: GERD, Hemorrhoids, Other (See Below) Other Gastrointestinal History: thrombosed external hemorrhoid Genitourinary History: Reports: Urinary Incontinence, Other (See Below) Other Genitourinary History: Urgency, dysuria 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 GEAR MILLING MACHINE SET UP OPERATOR History: Rectocele, night sweats, vaginitis, viral warts, peroneal tear, vaginal petar Musculoskeletal History: Other Musculoskeletal History: Trapezius strain Neurological History: Reports: Other (See Below) Other Neuro History: Degenerative disk disease (lumbar) Psychiatric History: Reports: Anxiety, Depression, Other (See Below) Other Psychiatric History: Insomnia Endocrine/Metabolic History: Reports: None Hematologic History: Reports: None Immunologic History: Reports: None Oncologic (Cancer) History: Reports: None Dermatologic History: Reports: Other (See Below) Other Dermatologic History: actinic keratosis, cellulitis - Infectious Disease History Infectious Disease History: Reports: Novel Coronavirus Other Infectious Disease History: Herpes labialis - Past Surgical History Head Surgeries/Procedures: Reports: None HEENT Surgical History: Reports: Naso-Sinus Surgery, Tonsillectomy Cardiovascular Surgical History: Reports: None Respiratory Surgical History: Reports: None GI Surgical History: Reports: Appendectomy, Cholecystectomy, EGD Female Surgical History: Reports: Hysterectomy, Other (See Below) Other Female Surgeries/Procedures: Breast lumpectomy, rectocele repair Endocrine Surgical History: Reports: None Neurological Surgical History: Reports: Lumbar Spine, Other (See Below) Other Neurological Surgeries/Procedures: CSF leak repair Musculoskeletal Surgical History: Reports: None, Other (See Below) Other Musculoskeletal Surgeries/Procedures:: bunion surgery Oncologic Surgical History: Reports: None Dermatological Surgical History: Reports: None Social & Family History - Tobacco Use Tobacco Use Status *Q: Never Tobacco User Second Hand Smoke Exposure: No - Caffeine Use Caffeine Use: Reports: None - Recreational Drug Use Recreational Drug Use: No - Living Situation & Occupation Living situation: Reports: Occupation: Employed Review of Systems - Review of Systems Review Of Systems: Comprehensive ROS is negative, except as noted in HPI. ED EXAM, GENERAL - Physical Exam Exam: See Below Exam Limited By: No Limitations General Appearance: Alert, WD/WN, No Apparent Distress Neck: Normal Inspection, Supple, Non-Tender, Full Range of Motion Respiratory/Chest: No Respiratory Distress, Lungs Clear, Normal Breath Sounds, No Accessory Muscle Use, Chest Non-Tender Cardiovascular: Normal Peripheral Pulses, Regular Rate, Rhythm, No Edema Peripheral Pulses: 2+: Radial (L), Radial (R) Back Exam: Normal Inspection, Muscle Spasm (there seems to be a spasm between the spine and right shoulder blade. this area does produe point tenderness), Paraspinal Tenderness (right between the right shoulder blade and the spine at the level of the shoulder blade) Extremities: Normal Inspection, Normal Range of Motion, Normal Capillary Refill Neurological: Alert, Oriented, Normal Cognition, No Motor/Sensory Deficits Psychiatric: Normal Affect, Normal Mood Skin Exam: Warm, Dry, Intact, Normal Color, No Rash Course - Vital Signs Last Recorded V/S: Last Vital Signs Temp 96.9 F 10/01/20 10:14 Pulse 61 10/01/20 10:14 Resp 16 10/01/20 10:14 BP 133/92 H 10/01/20 10:14 Pulse Ox 100 10/01/20 10:14 - Orders/Labs/Meds Meds: Medications Discontinued Medications Generic Name Dose Route Start Last Admin Trade Name Freq PRN Reason Stop Dose Admin Hydromorphone HCl 0.5 mg 10/01/20 12:09 10/01/20 12:21 Hydromorphone 0.5 Mg/0.5 Ml Syringe IM 10/01/20 12:10 0.5 mg ONETIME ONE Administration Ketorolac Tromethamine 60 mg 10/01/20 11:14 10/01/20 11:23 Ketorolac 60 Mg/2 Ml Sdv IM 10/01/20 11:15 60 mg ONETIME ONE Administration Ondansetron HCl 4 mg 10/01/20 12:23 10/01/20 12:25 Ondansetron 4 Mg Tab.Dis PO 10/01/20 12:24 4 mg ONETIME STA Administration Orphenadrine Citrate 100 mg 10/01/20 11:14 10/01/20 11:23 Orphenadrine 100 Mg Tab.Er PO 10/01/20 11:15 100 mg ONETIME ONE Administration - Re-Assessments/Exams Free Text/Narrative Re-Assessment/Exam: 10/01/20 11:18 Patient presents to the ED for the evaluation of his shoulder pain. We will go ahead and get a x-ray for initial evaluation try Toradol and Norflex for initial management. 10/01/20 12:09 X-ray has been performed, the AC joint and glenohumeral joints appear within normal limits. Degenerative endplate spurring is noted within the spine. Several old healed right-sided rib fractures are noted no acute fracture or dislocation is seen within the shoulder. I did reassess the patient at bedside, and states she is not feeling much better at all. We will go ahead and do 0.5 mg IM Dilaudid for ongoing pain management. 10/01/20 13:26 Patient states she is feeling better with the pain meds given. We will go ahead and give her a few tablets of oxycodone and some Norflex for ongoing management have her follow-up with the regular doctor sometime next week for ongoing management. Patient verbalized understanding. Departure - Departure Time of Disposition: 13:26 Disposition: Home, Self-Care 01 Condition: Good Clinical Impression: Shoulder blade pain, Muscle spasm - Discharge Information *PRESCRIPTION DRUG MONITORING PROGRAM REVIEWED*: Yes *COPY OF PRESCRIPTION DRUG MONITORING REPORT IN PATIENT MIGUELITO: No Instructions: Muscle Cramps and Spasms, Qteu-gf-Term Referrals: Jess Enciso PA-C [Primary Care Provider] - Forms: ED Department Discharge Additional Instructions: You have been evaluated in the ED for your right shoulder blade/back pain. Your x-ray demonstrated no acute fractures or other bony abnormalities that was taken of your right shoulder. Please use ice/heat as tolerated to the affected area. You may take Tylenol 500 mg or ibuprofen 600mg q6 hrs for pain relief. Please do so until you have a tolerable level of pain with activity. Do not exceed 4000mg Tylenol, Do not exceed 3200mg ibuprofen in a 24 hour time period. You were given a prescription for a strong pain medication, oxycodone/acetaminophen 5/325, please take 1 tab every 6 hours as needed for pain not relieved by Tylenol or ibuprofen alone. Please note this does contain Tylenol in it, so do not take more than 4000 mg in a 24-hour time span. These medications can be addictive, so please take as few as possible to achieve adequate pain control. These meds can also be quite constipating, recommend that you increase your oral fluid intake and take a stool softener like MiraLAX while taking these medications. You were given a prescription for Norflex, muscle relaxer you may take 1 tablet 2 times a day as needed for further muscle spasms. Please do not drive while taking these medications as they can be sedating. Please return to ED if your symptoms should change or worsen. Sepsis Event Note (ED) - Evaluation Sepsis Screening Result: No Definite Risk - Focused Exam Vital Signs: Vital Signs Temp Pulse Resp BP Pulse Ox 10/01/20 10:14 96.9 F 61 16 133/92 H 100
--- NOTE | 2020-10-01 12:04 | CR ---
Right shoulder: 3 views of the right shoulder were obtained. Comparison: No prior right shoulder study is available. Acromioclavicular and glenohumeral joints appear within normal limits. Degenerative endplate spurring is noted within the spine. Several old healed right-sided rib fractures are noted. No acute fracture is seen within the shoulder. No dislocation is seen. Impression: 1. Findings as noted above. 2. Nothing acute is seen on right shoulder study. Diagnostic code #2
[2020-10-01] MEDS ORDERED: HYDROmorphone 0.5 MG/0.5 ML Syringe IM ONE (12:09)
[2020-10-01] MEDS ORDERED: Ondansetron 4 MG Tab.DIS PO STA (12:23)
[2020-10-01 14:57] VITALS: BP 128/80; PULSE 65
== END 2020-10-01 13:45 | disposition home or self-care (01) ==
LOC: JD.ED 10:01
DX: M25.511 Pain in right shoulder (principal); Z79.899 Other long term (current) drug therapy
CPT/HCPCS: 73030; 96372; 99283; A9270; J1170; J1885

== ENCOUNTER 2021-09-14 13:20 | Day surgery (SDC) | payer BC ==
[~2021-09-14 13:20] MED LIST changes: +Bupivacaine 0.25% 10 ML SDV ONE; +Dexamethasone 4 MG/ML 5 ML MDV ONE; +Dexmedetomidine 200 MCG/2 ML SDV ONE; +Midazolam 1 MG/ML 2 ML SDV ONE; +Ondansetron 4 MG/2 ML SDV ONE; +Propofol 200 MG/20 ML SDV ONE; +Ropivacaine 0.5% 5 MG/ML 30 ML SDV ONE; +Sodium Chloride 0.9% 10 ML Syringe FLUSH SCH; +ceFAZolin 1 GM Vial ONE; +fentaNYL 100 MCG/2 ML SDV ONE
[2021-09-14] MEDS ORDERED: Propofol 200 MG/20 ML SDV ONE ×2 (13:31→13:54)
[2021-09-14] MEDS ORDERED: Scopolamine 1.5 MG Transdermal Patch TRDERM PRN (15:34)
[2021-09-14 16:05] VITALS: BP 130/84; PULSE 59
== END 2021-09-14 15:48 | disposition home or self-care (01) ==
LOC: JD.SDS 13:20
PROVIDERS: ATTEND Orthopaedic Surgery
DX: M77.42 Metatarsalgia, left foot (principal); K21.9 Gastro-esophageal reflux disease without esophagitis; F41.9 Anxiety disorder, unspecified; G43.909 Migraine, unspecified, not intractable, without status migrainosus; N32.81 Overactive bladder; J45.20 Mild intermittent asthma, uncomplicated; R05.9 Cough, unspecified; F32.A Depression, unspecified; Z86.16 Personal history of COVID-19; Z79.899 Other long term (current) drug therapy; Z90.49 Acquired absence of other specified parts of digestive tract; Z98.890 Other specified postprocedural states; Z87.891 Personal history of nicotine dependence
CPT/HCPCS: 28308; 76000; A9270; C1713; J0690; J1100; J2250; J2405; J2704; J2795; J3010; J3490; J7120; 01480; 64450; 76942

== ENCOUNTER 2022-06-19 09:53 | Emergency (ER) | payer BC ==
[2022-06-19] MEDS ORDERED: HYDROmorphone 0.5 MG/0.5 ML Syringe IVPUSH ONE (10:32)
[2022-06-19] MEDS ORDERED: Metoclopramide 10 MG/2 ML SDV IVPUSH ONE (10:32)
[2022-06-19] MEDS ORDERED: diphenhydrAMINE 50 MG/ML SDV IVPUSH ONE (10:33)
[2022-06-19] MEDS ORDERED: Dextrose 5%-0.9% NaCl 1,000 ML IV SCH (10:45)
[2022-06-19] MEDS ORDERED: Ketorolac 30 MG/ML SDV IVPUSH SCH (10:45)
[2022-06-19 12:38] VITALS: BP 150/90; PULSE 53
== END 2022-06-19 12:38 | disposition home or self-care (01) ==
LOC: JD.ED 09:53
DX: G43.809 Other migraine, not intractable, without status migrainosus (principal); Z86.16 Personal history of COVID-19
CPT/HCPCS: 96374; 96375; 99283; J1170; J1200; J1885; J2765; J7042

== ENCOUNTER 2023-02-27 07:00 | Day surgery (SDC) | payer BC ==
[~2023-02-27 07:00] MED LIST changes: +Acetaminophen 325 MG Tab PO SCH; -Bupivacaine 0.25% 10 ML SDV ONE; +EPINEPHrine 1 MG/ML SDV ONE; -Lactated Ringers 1,000 ML IV SCH; +Lidocaine 1% 6 ML ONE; -Lidocaine 1%/Sod Bicarbonate in NS 8.4% 1 ML Syringe IDERM PRN; -Ondansetron 4 MG/2 ML SDV ONE; +Pregabalin 25 MG Cap PO SCH; -Propofol 200 MG/20 ML SDV ONE; -ceFAZolin 1 GM Vial ONE; +oxyCODONE ER 10 MG TAB.ER PO SCH
[2023-02-27] MEDS ORDERED: Propofol 200 MG/20 ML SDV ONE (07:04)
[2023-02-27] MEDS: Lactated Ringers 1,000 ML IV SCH ×2 (07:25→12:29)
[2023-02-27] MEDS ORDERED: Vancomycin 1 GM SDV ONE (07:29)
[2023-02-27] MEDS ORDERED: Tranexamic Acid 1,000 MG/10 ML Vial ONE (07:30)
[2023-02-27] MEDS ORDERED: Scopolamine 1.5 MG Transdermal Patch TRDERM SCH (07:33)
[2023-02-27] MEDS ORDERED: Ketamine 500 mg/10 ML MDV ONE (09:46)
[2023-02-27] MEDS ORDERED: ceFAZolin 2 GM Vial ONE (09:59)
[2023-02-27] MEDS ORDERED: Ondansetron 4 MG/2 ML SDV ONE (10:28)
[2023-02-27] MEDS ORDERED: ePHEDrine 50 MG/ML SDV ONE (10:37)
[2023-02-27] MEDS ORDERED: fentaNYL 100 MCG/2 ML SDV IVPUSH PRN (11:14)
[2023-02-27] MEDS ORDERED: HYDROmorphone 0.5 MG/0.5 ML Syringe IVPUSH PRN (11:14)
[2023-02-27] MEDS ORDERED: Lidocaine 1% 5 ML VIAL ONE (11:16)
[2023-02-27] MEDS ORDERED: oxyCODONE 5 MG Tab PO ONE (13:15)
[2023-02-27 16:39] VITALS: BP 97/63; PULSE 57
== END 2023-02-27 13:30 | disposition home or self-care (01) ==
LOC: JD.SDS 07:00
PROVIDERS: ATTEND Orthopaedic Surgery
DX: M19.011 Primary osteoarthritis, right shoulder (principal); K14.6 Glossodynia; I10 Essential (primary) hypertension; J30.9 Allergic rhinitis, unspecified; F41.9 Anxiety disorder, unspecified; U07.1 COVID-19; M51.36 Other intervertebral disc degeneration, lumbar region; K21.9 Gastro-esophageal reflux disease without esophagitis; N95.1 Menopausal and female climacteric states; J45.909 Unspecified asthma, uncomplicated; F12.90 Cannabis use, unspecified, uncomplicated; E78.5 Hyperlipidemia, unspecified; G47.00 Insomnia, unspecified; J45.20 Mild intermittent asthma, uncomplicated; F32.A Depression, unspecified; I45.10 Unspecified right bundle-branch block; Z90.49 Acquired absence of other specified parts of digestive tract; Z90.710 Acquired absence of both cervix and uterus; Z79.899 Other long term (current) drug therapy; E78.00 Pure hypercholesterolemia, unspecified; K64.4 Residual hemorrhoidal skin tags; G43.909 Migraine, unspecified, not intractable, without status migrainosus; Z90.89 Acquired absence of other organs
CPT/HCPCS: 0055T; 23472; 64415; 76000; 97110; 97161; A9270; C1713; C1769; C1776; J0171; J0690; J1100; J2250; J2405; J2704; J2795; J3010; J3370; J3490; J7120; 01638

== ENCOUNTER 2024-05-20 06:00 | Day surgery (SDC) | payer BC ==
[~2024-05-20 06:00] MED LIST changes: -Acetaminophen 325 MG Tab PO SCH; -Dexamethasone 4 MG/ML 5 ML MDV ONE; -Dexmedetomidine 200 MCG/2 ML SDV ONE; -EPINEPHrine 1 MG/ML SDV ONE; -Lidocaine 1% 6 ML ONE; -Midazolam 1 MG/ML 2 ML SDV ONE; -Pregabalin 25 MG Cap PO SCH; -Ropivacaine 0.5% 5 MG/ML 30 ML SDV ONE; -fentaNYL 100 MCG/2 ML SDV ONE; -oxyCODONE ER 10 MG TAB.ER PO SCH
[2024-05-20] MEDS: Lactated Ringers 1,000 ML IV SCH (06:06)
[2024-05-20] MEDS ORDERED: Midazolam 1 MG/ML 2 ML SDV ONE (06:20)
[2024-05-20] MEDS ORDERED: Lidocaine 1% 5 ML VIAL ONE (06:20)
[2024-05-20] MEDS ORDERED: Propofol 200 MG/20 ML SDV ONE (06:20)
[2024-05-20] MEDS ORDERED: fentaNYL 100 MCG/2 ML SDV ONE (06:20)
[2024-05-20] MEDS ORDERED: Ondansetron 4 MG/2 ML SDV ONE (06:54)
[2024-05-20] MEDS ORDERED: ceFAZolin 2 GM Vial ONE (06:54)
[2024-05-20] MEDS: Lidocaine 1% 10 ML MDV ONE (07:15)
[2024-05-20] MEDS: Bupivacaine 0.25% 10 ML SDV ONE (07:15)
[2024-05-20] MEDS ORDERED: Ketorolac 30 MG/ML SDV ONE (07:24)
[2024-05-20 08:05] VITALS: BP 119/82; PULSE 75
== END 2024-05-20 08:25 | disposition home or self-care (01) ==
LOC: JD.SDS 06:00
PROVIDERS: ATTEND Orthopaedic Surgery
DX: G56.12 Other lesions of median nerve, left upper limb (principal); M65.842 Other synovitis and tenosynovitis, left hand; K21.9 Gastro-esophageal reflux disease without esophagitis; I10 Essential (primary) hypertension; E78.5 Hyperlipidemia, unspecified; Z87.891 Personal history of nicotine dependence; Z79.899 Other long term (current) drug therapy
CPT/HCPCS: 26055; 64721; J0665; J0690; J1885; J2250; J2405; J2704; J3010; J7120; 01810; J3490